=== PATIENT | male | born 1960 | race Caucasian/White ===

== ENCOUNTER 2016-09-29 18:51 | Emergency (ER) | payer OTHER ==
[2016-09-29 19:02] VITALS: BP 170/77; PULSE 78; TEMP 98.2; O2SAT 97
[2016-09-29] MEDS ORDERED: Lidocaine 1% Inj (20ml) ONE (20:12)
[2016-09-29] MEDS ORDERED: Lidocaine 1% Inj (20ml) INFIL ONE (20:35)
--- NOTE | 2016-09-29 20:58 | C.PDOC ---
History Of Present Illness 55 y/o male presents to the ED for evaluation of pain and swelling around nailbed of left index finger which began around 5 days ago. Patient notes he has been taking Clindamycin without any relief. Patient states his symptoms have worsened, and presents to the ED for further evaluation. He denies fever, chills. Time Seen by Provider: 09/29/16 20:21 Chief Complaint (Nursing): Upper Extremity Problem/Injury History Per: Patient History/Exam Limitations: no limitations Onset/Duration Of Symptoms: Days (5) Current Symptoms Are (Timing): Still Present Quality: "Pain" Additional History Per: Patient Past Medical History Reviewed: Historical Data, Nursing Documentation, Vital Signs Vital Signs: Last Vital Signs Temp 98.2 F 09/29/16 19:01 Pulse 78 09/29/16 19:01 Resp 20 09/29/16 21:13 BP 170/77 H 09/29/16 19:01 Pulse Ox 97 09/29/16 22:50 - Medical History PMH: No Chronic Diseases Surgical History: Appendectomy, Cholecystectomy - [facility] Procedures OTHER SKIN & SUBQ I D (04/06/13) Family History: States: Unknown Family Hx - Social History Hx Tobacco Use: No Hx Alcohol Use: No Hx Substance Use: No - Immunization History Hx Tetanus Toxoid Vaccination: No Hx Influenza Vaccination: No Hx Pneumococcal Vaccination: No Review Of Systems Constitutional: Negative for: Fever, Chills Skin: Positive for: Other (+pain and swelling to left index finger ) Physical Exam - Physical Exam Appears: Non-toxic, No Acute Distress Skin: Normal Color, Warm, Dry Eye(s): bilateral: Normal Inspection Extremity: Normal ROM, No Tenderness, Capillary Refill (less than 2 seconds ), No Deformity, Swelling (to lateral aspect of nailbed on left 2nd digit ) Neurological/Psych: Normal Speech, Normal Cognition Gait: Steady ED Course And Treatment O2 Sat by Pulse Oximetry: 97 (on RA) Pulse Ox Interpretation: Normal - Incision & Drainage Of Abscess Anesthesia: Lidocaine 1% Prep Used: Betadine Procedure: Incised W/Scalpel Blade#: (11), Drained Pus Medical Decision Making Medical Decision Making: Plan: * Lidocaine 1% * Incision and Drainage of Abscess * reassess and disposition Progress: Fluctuant area located to lateral aspect of left nailbed. Local anesthesia achieved with 1% lidocaine without epinephrine. Copious amounts of purulent discharge expressed. Sterile packing placed in incision. Wound dressed with dry , sterile dressing. Pt tolerated well. On reassessment, patient is resting comfortably with no signs of distress. Patient is stable for discharge and is advised to follow up with PMD within 1-2 days for further evaluation. Disposition Counseled Patient/Family Regarding: Diagnosis, Need For Followup - Disposition Referrals: Vivi Lunsford MD [Staff Provider] - Disposition: HOME/ ROUTINE Disposition Time: 21:03 Condition: STABLE Additional Instructions: Soak finger in warm water several times a day. Tylenol or Motrin for pain if needed. Continue antibiotics. FOllow up with Dr Lunsford. Instructions: Paronychia (ED) Forms: General Discharge Instructions - Clinical Impression Clinical Impression: Paronychia of finger of left hand - PA / DRYWALL CARRIER / Resident Statement MD/DO has reviewed & agrees with the documentation as recorded. - Scribe Statement The provider has reviewed the documentation as recorded by the Scribe (Karli Warren) All medical record entries made by the Scribe were at my direction and personally dictated by me. I have reviewed the chart and agree that the record accurately reflects my personal performance of the history, physical exam, medical decision making, and the department course for this patient. I have also personally directed, reviewed, and agree with the discharge instructions and disposition.
[2016-09-29 21:14] VITALS: RESP 20
== END 2016-09-29 21:13 | disposition home or self-care (01) ==
LOC: C.ER 18:51
DX: L03.012 Cellulitis of left finger (principal)

== ENCOUNTER 2016-12-12 09:42 | Emergency (ER) | payer OTHER ==
[2016-12-12] MEDS ORDERED: Sodium Chloride 0.9% 500 ML IV ONE (10:47)
[2016-12-12 10:52] LABS: RBC URINE 925 /hpf (0-3); URINE BILIRUBIN NEGATIVE (NEGATIVE); URINE BLOOD 3+ (NEGATIVE); URINE COLOR Red (YELLOW); URINE GLUCOSE (UA) NORMAL (Normal); URINE KETONE NEGATIVE (NEGATIVE); URINE LEUKOCYTE ESTERASE NEG Leu/uL (Negative); URINE PROTEIN 2+ mg/dL (NEGATIVE); URINE UROBILINOGEN NORMAL mg/dL (0.2-1.0); WBC URINE 7 /hpf (0-5)
[2016-12-12 11:11] LABS: BASO % 0.4 % (0.0-2.0); EOS % 0.4 % (0.0-4.0); HEMATOCRIT 47.6 % (35.0-51.0); LYMPH # 0.8 K/uL (1.0-4.3); LYMPH % 8.6 % (20.0-40.0); MEAN CELL VOLUME 90.6 fL (80.0-94.0); MEAN CORPUSCULAR HEMOGLOBIN 31.3 pg (27.0-31.0); MEAN CORPUSCULAR HGB CONC 34.6 g/dL (33.0-37.0); MONO # 0.4 K/uL (0.0-0.8); MONO % 4.7 % (0.0-10.0); NRBC % 0.1 % (0.0-2.0); PLATELET COUNT 198 K/uL (130-400); RED CELL DISTRIBUTION WIDTH 13.3 % (11.5-14.5); WHITE BLOOD COUNT 8.9 K/uL (4.8-10.8)
[2016-12-12 11:21] LABS: CHLORIDE 102 mmol/L (98-107); INR 1.1
[2016-12-12 11:22] LABS: POTASSIUM 4.2 mmol/L (3.6-5.2); SODIUM 142 mmol/L (132-148)
[2016-12-12 11:24] LABS: BILIRUBIN,TOTAL 1.2 mg/dL (0.2-1.3); GFR AFRICAN-AMERICAN > 60
[2016-12-12 11:25] LABS: ALB/GLOB RATIO 1.2 (1.0-2.1); ALKALINE PHOSPHATASE 122 U/L (38-126); ALT/SGPT 53 U/L (21-72); AST/SGOT 32 U/L (17-59); BLOOD UREA NITROGEN 14 mg/dL (9-20); CALCIUM 9.3 mg/dl (8.6-10.4); CARBON DIOXIDE 26 mmol/L (22-30); GLUCOSE,RANDOM 105 mg/dL (75-110); TOTAL PROTEIN 7.7 g/dL (6.3-8.3)
[2016-12-12 11:34] LABS: NEUTROPHIL 80 % (50-75); REACTIVE LYMPHOCYTES 2 % (0-0); TOTAL CELLS COUNTED 100
[2016-12-12] MEDS ORDERED: Iodixanol 320 MG/ML 100 ML BOTTLE IV ONE (12:08)
--- NOTE | 2016-12-12 12:17 | C.PDOC ---
History Of Present Illness 56 year old male with a history of BPH presents to the ED with complaints of intermittent LLQ pain since yesterday and gross hematuria today. Patient states pain is localized over LLQ and associated with an urge to defecate. He admits he first noted blood in urine two weeks ago when Patient was seen by PMD and sent for CT scan but has not followed up. Otherwise, pt denies fever, chills, headache, dizziness, neck pain, recent illness or abx use, CP, SOB, dyspnea, diaphoresis, palpitation, abd. pain, nausea, vomiting, diarrhea, hematemesis, melena, hematoschezia, back pain, UTI sx, Ambulate to ED for evaluation, denies any active pain at parent time. Time Seen by Provider: 12/12/16 09:58 Chief Complaint (Nursing): Abdominal Pain History Per: Patient History/Exam Limitations: no limitations Onset/Duration Of Symptoms: Hrs, Intermittent Episodes Current Symptoms Are (Timing): Still Present Location Of Pain/Discomfort: LLQ Radiation Of Pain To:: None Quality Of Discomfort: "Pain" Associated Symptoms: denies: Fever, Chills, Nausea, Vomiting, Diarrhea Recent travel outside of the [place]: No Past Medical History Reviewed: Historical Data, Nursing Documentation, Vital Signs Vital Signs: Last Vital Signs Temp 98.1 F 12/12/16 09:58 Pulse 64 12/12/16 09:58 Resp 20 12/12/16 09:58 BP 139/85 12/12/16 09:58 Pulse Ox 98 12/12/16 13:16 Surgical History: Appendectomy, Cholecystectomy, Tonsillectomy - [facility] Procedures OTHER SKIN & SUBQ I D (04/06/13) Family History: States: Unknown Family Hx - Social History Hx Tobacco Use: No Hx Alcohol Use: No Hx Substance Use: No - Immunization History Hx Tetanus Toxoid Vaccination: No Hx Influenza Vaccination: No Hx Pneumococcal Vaccination: No Review Of Systems Constitutional: Negative for: Fever, Chills Gastrointestinal: Positive for: Abdominal Pain (LLQ), Other (Urge to defecate ) . Negative for: Nausea, Vomiting, Diarrhea, Hematochezia Genitourinary: Positive for: Hematuria. Negative for: Dysuria Physical Exam - Physical Exam Appears: Well, Non-toxic, No Acute Distress Skin: Warm, Dry, No Rash Head: Normacephalic Eye(s): bilateral: PERRL Oral Mucosa: Moist, No Drooling Throat: No Erythema, No Exudate, No Drooling Neck: Supple Chest: Symmetrical, No Deformity Cardiovascular: Rhythm Regular, No JVD Respiratory: No Rales, No Rhonchi, No Stridor, No Wheezing Gastrointestinal/Abdominal: Soft, No Tenderness, No Distention, No Guarding, No Rebound Back: No CVA Tenderness, No Vertebral Tenderness, No Paraspinal Tenderness Extremity: Normal ROM, No Tenderness, No Pedal Edema Neurological/Psych: Oriented x3, Normal Speech, Normal Cognition, Normal Motor, Normal Sensation, Normal Reflexes ED Course And Treatment - Laboratory Results Result Diagrams: 12/12/16 11:01 12/12/16 11:01 Lab Interpretation: No Acute Changes O2 Sat by Pulse Oximetry: 98 (room air ) Pulse Ox Interpretation: Normal - CT Scan/US Abdomen and pelvis CT with and without contrast Other Rad Studies (CT/US): Read By Radiologist, Radiology Report Reviewed CT/US Interpretation: FINDINGS: LOWER THORAX:No visible consolidation, pleural effusion, or pneumothorax. LIVER:Unremarkable. GALLBLADDER AND BILE DUCTS: Unremarkable. PANCREAS:Unremarkable. SPLEEN:Unremarkable. ADRENALS: Unremarkable. KIDNEYS AND URETERS:The kidneys enhance symmetrically. 4 mm calculus within the proximal left ureter (series 2, image 84). 9 x 6 mm left renal calculus. Mild left-sided hydronephrosis. No right-sided hydronephrosis or obstructing calculus. VASCULATURE: No aortic aneurysm. BOWEL: Stomach is nondistended. Lack of oral contrast limits evaluation for bowel pathology. Bowel loops appear within normal limits of caliber without evidence of obstruction. Diverticulosis without CT evidence of acute diverticulitis. APPENDIX:The appendix is not identified. No secondary signs of acute appendicitis appreciated. PERITONEUM: No significant free fluid. No definite free air. LYMPH NODES: No bulky adenopathy identified. BLADDER: Unremarkable. REPRODUCTIVE:Enlarged heterogeneous prostate gland measures approximately 5.4 x 5.7 cm. BONES: Degenerative changes. OTHER FINDINGS: None. IMPRESSION: 4 mm calculus within the proximal left ureter. 9 x 6 mm left renal calculus. Mild left-sided hydronephrosis. Diverticulosis without CT evidence of acute diverticulitis. Enlarged heterogeneous prostate gland. Recommend correlation with PSA. Progress Note: Abdomen and pelvis CT and urine culture was ordered. Patient was given fluids. On re-evaluation, pt remained asymptomatic. Afebrile, hemodynamicaly stable. Non-toxic. Tolerate Po well in ED. Neck: Supple. ENT: no acute findings. Lungs: CTA B/L, BS equal B/L. CVS: (+)S1S2, reg. Abd: benign, (-) guarding, (-) rebound. Back: (-) CVA tenderness. Blodo work review and appears without acute abnoramlities. UA (+) hematuria c/w clinical gross hematuria. CT abd/pelvis performed: 4 mm calculus within the proximal left ureter. 9 x 6 mm left renal calculus. Mild left-sided hydronephrosis. Results discussed with pt. Ref. to F/u with Urology in 2-3 days for re-eval. Pt udnesrtand and agrees with discharges. Disposition Counseled Patient/Family Regarding: Studies Performed, Diagnosis, Need For Followup - Disposition Referrals: Karel Das MD [Staff Provider] - Disposition: HOME/ ROUTINE Disposition Time: 12:50 Condition: STABLE Additional Instructions: Encourage fluids Urine strain Follow up with Urology in 2-3 days for re-evaluation. Return to ED if any worsening or new changes. Instructions: Kidney Stones (ED) Forms: [facility] (Latvian) - Clinical Impression Clinical Impression: Nephrolithiasis - Scribe Statement The provider has reviewed the documentation as recorded by the Scribe Jannie De La Garza All medical record entries made by the Scribe were at my direction and personally dictated by me. I have reviewed the chart and agree that the record accurately reflects my personal performance of the history, physical exam, medical decision making, and the department course for this patient. I have also personally directed, reviewed, and agree with the discharge instructions and disposition.
--- NOTE | 2016-12-12 13:06 | CT ---
PROCEDURE: CT Abdomen and Pelvis with and without intravenous contrast HISTORY: LLQ pain, hematuria COMPARISON: None available. TECHNIQUE: Axial images of the abdomen were obtained in the pre contrast, portal venous and delayed phases of enhancement. Coronal and sagittal reformats were generated and reviewed. Contrast dose: 100 cc Visipaque 320 Radiation dose: Total exam DLP = mGy-cm. This CT exam was performed using one or more of the following dose reduction techniques: Automated exposure control, adjustment of the mA and/or kV according to patient size, and/or use of iterative reconstruction technique. FINDINGS: LOWER THORAX: No visible consolidation, pleural effusion, or pneumothorax. LIVER: Unremarkable. GALLBLADDER AND BILE DUCTS: Unremarkable. PANCREAS: Unremarkable. SPLEEN: Unremarkable. ADRENALS: Unremarkable. KIDNEYS AND URETERS: The kidneys enhance symmetrically. 4 mm calculus within the proximal left ureter (series 2, image 84). 9 x 6 mm left renal calculus. Mild left-sided hydronephrosis. No right-sided hydronephrosis or obstructing calculus. VASCULATURE: No aortic aneurysm. BOWEL: Stomach is nondistended. Lack of oral contrast limits evaluation for bowel pathology. Bowel loops appear within normal limits of caliber without evidence of obstruction. Diverticulosis without CT evidence of acute diverticulitis. APPENDIX: The appendix is not identified. No secondary signs of acute appendicitis appreciated. PERITONEUM: No significant free fluid. No definite free air. LYMPH NODES: No bulky adenopathy identified. BLADDER: Unremarkable. REPRODUCTIVE: Enlarged heterogeneous prostate gland measures approximately 5.4 x 5.7 cm. BONES: Degenerative changes. OTHER FINDINGS: None. IMPRESSION: 4 mm calculus within the proximal left ureter. 9 x 6 mm left renal calculus. Mild left-sided hydronephrosis. Diverticulosis without CT evidence of acute diverticulitis. Enlarged heterogeneous prostate gland. Recommend correlation with PSA.
[2016-12-12 13:51] VITALS: BP 153/87; PULSE 67; RESP 18; TEMP 98.3; O2SAT 99
== END 2016-12-12 13:45 | disposition home or self-care (01) ==
LOC: C.ER 09:42
DX: N20.0 Calculus of kidney (principal)
CPT/HCPCS: 74178; 80053; 81001; 83690; 85025; 85610; 85730; 87086; 99285; J7040; Q9967

== ENCOUNTER 2017-01-28 04:10 | Emergency (ER) | payer OTHER ==
[2017-01-28 04:34] VITALS: BP 152/100; PULSE 87; RESP 16; TEMP 98; O2SAT 100
[2017-01-28] MEDS ORDERED: Lidocaine 2% Jelly (Uro-Jet) ONE (04:39)
[2017-01-28] MEDS ORDERED: Lidocaine 2% Jelly (Uro-Jet) TOP ONE (04:44)
--- NOTE | 2017-01-28 04:45 | C.PDOC ---
History Of Present Illness 56 y/o male comes in for an obstructed velez catheter. Patient notes that his velez catheter is not draining. Denies fever or chills. Time Seen by Provider: 01/28/17 04:49 Chief Complaint (Nursing): Male Genitourinary History Per: Patient History/Exam Limitations: no limitations Onset/Duration Of Symptoms: Hrs Current Symptoms Are (Timing): Still Present Severity: Mild Associated Symptoms: denies: Fever, Chills Recent travel outside of the [place] States: No Additional History Per: Patient Past Medical History Reviewed: Historical Data, Nursing Documentation, Vital Signs Vital Signs: Last Vital Signs Temp 98 F 01/28/17 04:26 Pulse 87 01/28/17 04:26 Resp 16 01/28/17 04:26 BP 152/100 H 01/28/17 04:26 Pulse Ox 100 01/28/17 04:52 - Medical History PMH: Kidney Stones, Chronic Kidney Disease Surgical History: Appendectomy, Cholecystectomy, Tonsillectomy - [facility] Procedures OTHER SKIN & SUBQ I D (04/06/13) Family History: States: Unknown Family Hx - Social History Hx Tobacco Use: No Hx Alcohol Use: No Hx Substance Use: No - Immunization History Hx Tetanus Toxoid Vaccination: No Hx Influenza Vaccination: No Hx Pneumococcal Vaccination: No Review Of Systems Except As Marked, All Systems Reviewed And Found Negative. Constitutional: Negative for: Fever, Chills Genitourinary: Positive for: Other (Obstructed velez) Physical Exam - Physical Exam Appears: Non-toxic, No Acute Distress Skin: Warm, Dry Head: Atraumatic, Normacephalic Oral Mucosa: Moist Cardiovascular: Rhythm Regular, No Murmur Respiratory: Normal Breath Sounds, No Rales, No Rhonchi, No Wheezing Gastrointestinal/Abdominal: Soft, Tenderness (Hypogastric tenderness and swelling.), Other (Velez catheter in place, obstructed) Neurological/Psych: Oriented x3 ED Course And Treatment O2 Sat by Pulse Oximetry: 100 (RA) Pulse Ox Interpretation: Normal Medical Decision Making Medical Decision Making: Plans: * Urinary catheter inserted Obstructed velez catheter has to be changed. Velez has been changed and patient is in no acute distress at this time. Disposition Counseled Patient/Family Regarding: Diagnosis - Disposition Referrals: Vivi Lunsford MD [Staff Provider] - Disposition: HOME/ ROUTINE Disposition Time: 04:55 Condition: IMPROVED Instructions: Velez Catheter Placement and Care (ED) Forms: [facility] (Ukrainian) - POA Present On Arrival: None - Clinical Impression Clinical Impression: Urinary retention, Obstructed Velez catheter - Scribe Statement The provider has reviewed the documentation as recorded by the Scribe Phillip kapoor All medical record entries made by the Anoopibe were at my direction and personally dictated by me. I have reviewed the chart and agree that the record accurately reflects my personal performance of the history, physical exam, medical decision making, and the department course for this patient. I have also personally directed, reviewed, and agree with the discharge instructions and disposition.
== END 2017-01-28 05:19 | disposition home or self-care (01) ==
LOC: C.ER 04:10
DX: T83.098A Other mechanical complication of other urinary catheter, initial encounter (principal); Y84.8 Other medical procedures as the cause of abnormal reaction of the patient, or of later complication, without mention of misadventure at the time of the procedure; R33.9 Retention of urine, unspecified

== ENCOUNTER 2018-03-26 20:37 | Emergency (ER) | payer OTHER ==
[2018-03-26 20:38] VITALS: BMI 28.0
[2018-03-26] MEDS ORDERED: Sodium Chloride 0.9% 1,000 ML IV ONE (21:14)
--- NOTE | 2018-03-26 21:14 | C.PDOC ---
History Of Present Illness 57 year old male with PMHx enlarged prostate, kidney stones presents, TURP to the ED c/o hematuria and fatigue. Patient states at first he noticed small amount of blood in his urine, but today he saw gross hematuria. Patient also c/o occasional bladder spams. Patient denies fever, chills, nausea, vomit, diarrhea, back pain, penile pain, rash. Time Seen by Provider: 03/26/18 21:13 Chief Complaint (Nursing): Abdominal Pain History Per: Patient History/Exam Limitations: no limitations Onset/Duration Of Symptoms: Days Current Symptoms Are (Timing): Still Present Location Of Pain/Discomfort: Diffuse Radiation Of Pain To:: None Quality Of Discomfort: "Pain" Associated Symptoms: Urinary Symptoms. denies: Nausea, Vomiting, Diarrhea Last Bowel Movement: Today Recent travel outside of the [place]: No Additional History Per: Patient Past Medical History Reviewed: Historical Data, Nursing Documentation, Vital Signs Vital Signs: Last Vital Signs Temp 98.2 F 03/26/18 20:52 Pulse 88 03/26/18 20:52 Resp 20 03/26/18 20:52 BP 134/84 03/26/18 20:52 Pulse Ox 95 03/26/18 20:52 - Medical History PMH: Kidney Stones, Chronic Kidney Disease Surgical History: Appendectomy, Cholecystectomy, Tonsillectomy - [facility] Procedures OTHER SKIN & SUBQ I D (04/06/13) Family History: States: No Known Family Hx - Social History Hx Tobacco Use: No Hx Alcohol Use: No Hx Substance Use: No - Immunization History Hx Tetanus Toxoid Vaccination: No Hx Influenza Vaccination: No Hx Pneumococcal Vaccination: No Review Of Systems Constitutional: Negative for: Fever, Chills Cardiovascular: Negative for: Chest Pain, Palpitations Respiratory: Negative for: Cough, Shortness of Breath Gastrointestinal: Positive for: Abdominal Pain. Negative for: Nausea, Vomiting, Diarrhea Genitourinary: Positive for: Hematuria Musculoskeletal: Negative for: Back Pain Neurological: Negative for: Weakness, Numbness Physical Exam - Physical Exam Appears: Non-toxic, No Acute Distress Skin: Warm, Dry Head: Normacephalic Eye(s): bilateral: Normal Inspection Oral Mucosa: Moist Neck: Supple Chest: Symmetrical Cardiovascular: Rhythm Regular Respiratory: No Rales, No Rhonchi, No Wheezing Gastrointestinal/Abdominal: Soft, Tenderness (suprapubic ), No Guarding, No Rebound Back: No CVA Tenderness Extremity: Bilateral: Atraumatic, Normal Color And Temperature, Normal ROM Neurological/Psych: Oriented x3, Normal Speech, Normal Cognition Gait: Steady ED Course And Treatment - Laboratory Results Result Diagrams: 03/26/18 21:53 03/26/18 21:53 O2 Sat by Pulse Oximetry: 95 (ON RA) Pulse Ox Interpretation: Normal Progress Note: Plan: - VBG. - Labs. - IV fluids. - Blood culture. - UA Reevaluation Time: 03:52 Reassessment Condition: Improved Disposition Counseled Patient/Family Regarding: Studies Performed, Diagnosis, Need For Followup - Disposition Referrals: Vivi Lunsford MD [Staff Provider] - Disposition: HOME/ ROUTINE Disposition Time: 21:14 Condition: FAIR Additional Instructions: Please return if symptoms recur Prescriptions: Ciprofloxacin [Cipro] 1 tab PO BID #14 tab Metronidazole [Flagyl] 500 mg PO TID #21 tablet Instructions: Diverticulitis (DC), Blood in the Urine (Hematuria), Adult (DC) Forms: [facility] (Maltese) - Clinical Impression Clinical Impression: Abdominal pain, Bladder stones, Hematuria, Diverticulitis - Scribe Statement The provider has reviewed the documentation as recorded by the Scribe Bassam Rodriguez All medical record entries made by the Scribe were at my direction and personally dictated by me. I have reviewed the chart and agree that the record accurately reflects my personal performance of the history, physical exam, medical decision making, and the department course for this patient. I have also personally directed, reviewed, and agree with the discharge instructions and disposition.
[2018-03-26 21:59] LABS: BASO # 0.1 K/uL (0.0-0.2); BASO % 0.8 % (0.0-2.0); EOS # 0.1 K/uL (0.0-0.7); HEMOGLOBIN 14.9 g/dL (12.0-18.0); LYMPH # 1.4 K/uL (1.0-4.3); LYMPH % 13.7 % (20.0-40.0); MEAN CELL VOLUME 88.5 fL (80.0-94.0); MEAN CORPUSCULAR HEMOGLOBIN 30.5 pg (27.0-31.0); MEAN CORPUSCULAR HGB CONC 34.4 g/dL (33.0-37.0); MEAN PLATELET VOLUME 7.4 fL (7.2-11.7); MONO % 9.9 % (0.0-10.0); NEUT # 7.7 K/uL (1.8-7.0); NEUT % 74.6 % (50.0-75.0); RBC 4.88 Mil/uL (4.40-5.90); RED CELL DISTRIBUTION WIDTH 13.7 % (11.5-14.5); WHITE BLOOD COUNT 10.3 K/uL (4.8-10.8)
[2018-03-26 22:05] LABS: VENOUS BLOOD GAS BASE EXCESS -1.8 mmol/L (0.0-2.0); VENOUS BLOOD GAS PCO2 42 mmHg (40-60); VENOUS BLOOD GAS PO2 30 mm/Hg (30-55); VENOUS BLOOD PH 7.36 (7.32-7.43)
[2018-03-26 22:11] LABS: SQUAMOUS EPITHIAL < 1 /hpf (0-5); URINE BACTERIA RARE (<OCC); URINE BILIRUBIN NEGATIVE (NEGATIVE); URINE BLOOD 3+ (NEGATIVE); URINE CLARITY Hazy (Clear); URINE COLOR Amber (YELLOW); URINE GLUCOSE (UA) NORMAL (Normal); URINE LEUKOCYTE ESTERASE NEG Leu/uL (Negative); URINE PROTEIN 2+ mg/dL (NEGATIVE); URINE URIC ACID CRYSTALS RARE /hpf (<OCC); URINE UROBILINOGEN NORMAL mg/dL (0.2-1.0)
[2018-03-26] MEDS ORDERED: Sodium Chloride 0.9% 1,000 ML ONE (22:11)
[2018-03-26 22:12] LABS: INR 1.2; PROTHROMBIN TIME 13.3 SECONDS (9.7-12.2)
[2018-03-26 22:18] LABS: ALB/GLOB RATIO 1.3 (1.0-2.1); ALBUMIN 4.5 g/dL (3.5-5.0); ALT/SGPT 61 U/L (21-72); AST/SGOT 33 U/L (17-59); BLOOD UREA NITROGEN 20 mg/dL (9-20); CALCIUM 9.1 mg/dl (8.6-10.4); GFR NON-AFRICAN AMERICAN > 60; LIPASE 79 U/L (23-300)
[2018-03-27 03:10] VITALS: BP 118/71; PULSE 78; RESP 18; TEMP 98.4
[2018-03-27 03:53] VITALS: O2SAT 95
--- NOTE | 2018-03-27 09:12 | CT ---
CT abdomen and pelvis HISTORY: Hematuria. COMPARISON: 12/12/2016 Technique: Multiple contiguous axial images were performed through the abdomen and pelvis without the use of intravenous contrast. Subsequently, sagittal and coronal reformatted images were obtained. This CT exam was performed using one or more of the following dose reduction techniques: Automated exposure control, adjustment of the mA and/or kV according to patient size, and/or use of iterative reconstruction technique. Findings: Mild atelectasis at the lung bases. No pleural or pericardial effusion. Mild fatty infiltration of the liver. Gallbladder is preserved. Spleen is preserved. Adrenal glands are preserved. Pancreas is preserved. Upper abdominal bowel is preserved. Right kidney: No calculi or hydronephrosis. Left Kidney: No calculi or hydronephrosis. Large 1.4 centimeter rounded radiopaque density suggestive for a calculus seen within the urinary bladder. In addition, there are multiple curvilinear radiopaque densities seen within the region of the mid to inferior urinary bladder and/or adjacent prostate gland of uncertain clinical etiology possibly representing vascular calcifications versus prior surgical material versus additional etiology. Further evaluation with bladder ultrasound and/or cystoscopy is recommended if clinically indicated. Heterogeneous prominent prostate with a suggestion of calcifications. Evaluation of the lower abdominal bowel demonstrates colonic diverticulosis. Prominent focal thickening of the mid sigmoid colon with associated adjacent fat stranding and fluid suggestive for an acute focal sigmoid diverticulitis versus focal colitis versus additional etiology. Post treatment interval follow-up is recommended to exclude underlying lesion. Posttreatment colonoscopy be helpful if clinically indicated. Moderate fecal retention throughout the remainder of the visualized colon. Appendix not well visualized. Few shotty inguinal and para-aortic lymph nodes. Few shotty mesenteric lymph nodes. Degenerative changes in the spine and bilateral hips. 1.8 centimeter lucent foci in the anterior left acetabulum, nonspecific. Degenerative changes in the spine. Prominent posterior disc osteophyte complex at the L5-S1 level. Impression: 1. Evaluation of the lower abdominal bowel demonstrates colonic diverticulosis. Prominent focal thickening of the mid sigmoid colon with associated adjacent fat stranding and fluid suggestive for an acute focal sigmoid diverticulitis versus focal colitis versus additional etiology. Post treatment interval follow-up is recommended to exclude underlying lesion. Posttreatment colonoscopy be helpful if clinically indicated. 2. Large 1.4 centimeter rounded radiopaque density suggestive for a calculus seen within the urinary bladder. In addition, there are multiple curvilinear radiopaque densities seen within the region of the mid to inferior urinary bladder and/or adjacent prostate gland of uncertain clinical etiology possibly representing bladder calculi versus vascular calcifications versus prior surgical material versus additional etiology. Further evaluation with bladder ultrasound and/or cystoscopy is recommended if clinically indicated. 3. Heterogeneous prominent prostate with a suggestion of calcifications. Additional findings as above. A preliminary report was generated at 3:04 a.m. on 03/27/[address] Sukhjinder Welch from [facility]
== END 2018-03-27 04:29 | disposition home or self-care (01) ==
LOC: C.ER 20:37
DX: K57.92 Diverticulitis of intestine, part unspecified, without perforation or abscess without bleeding (principal); N21.0 Calculus in bladder; R31.9 Hematuria, unspecified; N18.9 Chronic kidney disease, unspecified
CPT/HCPCS: 74176; 80053; 81001; 82803; 83690; 85025; 85610; 85730; 87040; 99285; J7030